=== PATIENT | male | born 2000 | race Caucasian/White ===

== ENCOUNTER 2021-02-11 11:38 | Emergency (ER) | payer OTHER ==
[~2021-02-11] VITALS: Ht 175.3 cm; Wt 100.0 kg
[2021-02-11 14:37] VITALS: BP 135/88
== END 2021-02-11 14:40 | disposition home or self-care (01) ==
LOC: ED 11:38
DX: U07.1 COVID-19 (principal)

== ENCOUNTER 2021-10-11 00:50 | Emergency (ER) | payer OTHER ==
[~2021-10-11] VITALS: Ht 175.3 cm; Wt 103.0 kg
[2021-10-11 02:20] VITALS: BP 131/70
== END 2021-10-11 02:24 | disposition home or self-care (01) | DRG 605 ==
LOC: ED 00:50
DX: S00.81XA Abrasion of other part of head, initial encounter (principal); S00.01XA Abrasion of scalp, initial encounter; S00.83XA Contusion of other part of head, initial encounter; V49.88XA Car occupant (driver) (passenger) injured in other specified transport accidents, initial encounter; S16.1XXA Strain of muscle, fascia and tendon at neck level, initial encounter; S09.90XA Unspecified injury of head, initial encounter